=== PATIENT | male | born 1945 | race Caucasian/White ===

== ENCOUNTER 2017-07-28 17:07 | Inpatient (IN) | payer OTHER ==
[2017-07-28 18:29] LABS: ADD MAN DIFF? NO
[2017-07-28 18:33] LABS: WHITE BLOOD COUNT 5.4 10^3/ul (4.8-10.8)
[2017-07-28 18:33] LABS: BASOPHILS % 0.4 % (0.0-2.0); EOSINOPHILS # 0.1 10^3/ul (0.0-0.5); EOSINOPHILS % 2.2 % (0.0-7.0); HEMATOCRIT 40.2 % (42.0-52.0); HEMOGLOBIN 13.5 g/dl (14.0-18.0); LYMPHOCYTES # 1.9 10^3/ul (0.8-2.9); LYMPHOCYTES % 35.8 % (15.0-51.0); MEAN CORPUSCULAR HEMOGLOBIN 30.6 pg (29.0-33.0); MEAN CORPUSCULAR HGB CONC 33.6 g/dl (32.0-37.0); MEAN CORPUSCULAR VOLUME 91.2 fl (82.0-101.0); MEAN PLATELET VOLUME 10.4 fl (7.4-10.4); MONOCYTE # 0.5 10^3/ul (0.3-0.9); MONOCYTES % 9.5 % (0.0-11.0); NEUTROPHIL # 2.8 10^3/ul (1.6-7.5); NEUTROPHILS % 51.9 % (39.0-77.0); PLATELET COUNT 368 10^3/UL (140-415); RED BLOOD COUNT 4.41 10^6/ul (4.70-6.10)
[2017-07-28] MEDS: ASPIRIN 325 MG TAB PO (18:43)
[2017-07-28] MEDS: METOPROLOL 5 MG INJ IV (18:44)
[2017-07-28 19:00] LABS: ANION GAP 12 (8-16); BLOOD UREA NITROGEN 14 mg/dl (7-20); CALCIUM 8.8 mg/dl (8.4-10.2); CARBON DIOXIDE 29 mmol/L (21-31); CHLORIDE 105 mmol/L (97-110); CREATININE 0.78 mg/dl (0.61-1.24); GLUCOSE 297 mg/dl (70-220); POTASSIUM 4.3 mmol/L (3.5-5.1); SODIUM 142 mmol/L (135-144)
[2017-07-28 19:07] LABS: PT RATIO 1.1
[2017-07-28 19:08] LABS: PARTIAL THROMBOPLASTIN TIME 34.4 Sec (25.0-35.0)
[2017-07-28 19:11] LABS: B-TYPE NATRIURETIC PEPTIDE 833 PG/ML (0-125); TROPONIN-I 0.016 ng/ml (0.00-0.12)
[2017-07-28 19:27] LABS: INR 1.04; PROTIME 13.7 Sec (11.9-14.9)
[2017-07-28] MEDS ORDERED: ACETAMINOPHEN 325 MG TAB PO (20:00)
[2017-07-28] MEDS ORDERED: BISACODYL (EC) 5 MG TAB PO (20:00)
[2017-07-28] MEDS ORDERED: morphine 2 MG INJ IV (20:00)
[2017-07-28] MEDS ORDERED: NITROGLYCERIN (SL) 0.4 MG TAB SL (20:00)
[2017-07-28] MEDS ORDERED: NACL 0.9% 3 ML SYG IV (20:00)
[2017-07-28] MEDS ORDERED: ONDANSETRON 4 MG TAB PO (20:00)
[2017-07-28] MEDS ORDERED: GLUCOSE GEL 15 GRAM TUBE BUCCAL (21:00)
[2017-07-28] MEDS ORDERED: DEXTROSE 50% 50 ML SYRINGE IV ×2 (21:00)
[2017-07-28] MEDS ORDERED: GLUCAGON 1 MG INJ IM (21:00)
[2017-07-28] MEDS ORDERED: GLUCOSE GEL 15 GRAM TUBE PO ×2 (21:00)
[2017-07-28] MEDS: SOD CHLORIDE 0.9% 1,000 ML IV (21:38)
[2017-07-28] MEDS: INSULIN ASPART [NOVOLOG] 3 ML PEN SC (21:47)
[2017-07-29] MEDS: DILTIAZEM-D5W 125MG/125ML DRIP 125 ML IV (00:51)
[2017-07-29 01:13] LABS: CREATINE KINASE 65 IU/L (23-200)
[2017-07-29 01:26] LABS: CK INDEX 3.1; TROPONIN-I 0.021 ng/ml (0.00-0.12)
[2017-07-29 01:29] LABS: CK-MB 2.03 ng/ml (0.0-2.4)
[2017-07-29] MEDS: ACCU-CHEK XX (03:05)
[2017-07-29 06:59] LABS: ADD MAN DIFF? NO
[2017-07-29 07:11] LABS: WHITE BLOOD COUNT 5.6 10^3/ul (4.8-10.8)
[2017-07-29 07:11] LABS: BASOPHILS % 0.4 % (0.0-2.0); EOSINOPHILS # 0.1 10^3/ul (0.0-0.5); EOSINOPHILS % 2.5 % (0.0-7.0); HEMATOCRIT 38.7 % (42.0-52.0); HEMOGLOBIN 13.1 g/dl (14.0-18.0); LYMPHOCYTES # 2.1 10^3/ul (0.8-2.9); LYMPHOCYTES % 36.9 % (15.0-51.0); MEAN CORPUSCULAR HEMOGLOBIN 30.8 pg (29.0-33.0); MEAN CORPUSCULAR HGB CONC 33.9 g/dl (32.0-37.0); MEAN CORPUSCULAR VOLUME 90.8 fl (82.0-101.0); MEAN PLATELET VOLUME 10.5 fl (7.4-10.4); MONOCYTE # 0.5 10^3/ul (0.3-0.9); MONOCYTES % 8.5 % (0.0-11.0); NEUTROPHIL # 2.9 10^3/ul (1.6-7.5); NEUTROPHILS % 51.5 % (39.0-77.0); PLATELET COUNT 365 10^3/UL (140-415); RED BLOOD COUNT 4.26 10^6/ul (4.70-6.10); RED CELL DISTRIBUTION WIDTH 12.9 % (11.5-14.5)
[2017-07-29 07:20] LABS: HEMOGLOBIN A1C 8.2 % (0-5.9)
[2017-07-29 07:24] LABS: CREATINE KINASE 59 IU/L (23-200)
[2017-07-29 07:26] LABS: ALANINE AMINOTRANSFERASE 37 IU/L (13-69); ALBUMIN 3.3 g/dl (3.3-4.9); ALBUMIN/GLOBULIN RATIO 1.06; ALKALINE PHOSPHATASE 79 IU/L (42-121); ANION GAP 12 (8-16); ASPARTATE AMINO TRANSFERASE 32 IU/L (15-46); BILIRUBIN,INDIRECT 0.4 mg/dl (0-1.1); BILIRUBIN,TOTAL 0.4 mg/dl (0.2-1.3); BLOOD UREA NITROGEN 12 mg/dl (7-20); CALCIUM 8.6 mg/dl (8.4-10.2); CARBON DIOXIDE 28 mmol/L (21-31); CHLORIDE 108 mmol/L (97-110); CHOL/HDL RATIO 6.7 RATIO; CHOLESTEROL 176 mg/dl (100-200); CREATININE 0.68 mg/dl (0.61-1.24); GLUCOSE 158 mg/dl (70-220); HDL CHOLESTEROL 26 mg/dl (31-75); LDL CHOLESTEROL,CALCULATED 128 mg/dl; MAGNESIUM 1.8 mg/dl (1.7-2.5); POTASSIUM 4.1 mmol/L (3.5-5.1); SODIUM 144 mmol/L (135-144); TOTAL PROTEIN 6.4 g/dl (6.1-8.1); TRIGLYCERIDES 108 mg/dl (0-149)
[2017-07-29 07:33] LABS: CK INDEX 3.3; TROPONIN-I 0.022 ng/ml (0.00-0.12)
[2017-07-29 07:36] LABS: CK-MB 1.97 ng/ml (0.0-2.4)
[2017-07-29] MEDS: INSULIN ASPART [NOVOLOG] 3 ML PEN SC ×4 (08:10→20:49)
[2017-07-29] MEDS: ASPIRIN (EC) 81 MG TAB PO (08:11)
[2017-07-29] MEDS: ENOXAPARIN 100 MG/ML SYG SC (08:12)
[2017-07-29] MEDS: LEVALBUTEROL (NEB) 0.63 MG/3 ML AMP HHN ×4 (09:00→20:20)
[2017-07-29] MEDS: METOPROLOL 25 MG TAB PO (10:16)
[2017-07-29] MEDS ORDERED: morphine LIQ (10 MG/5 ML) CUP PO (16:00)
[2017-07-29] MEDS: DIGOXIN 500 MCG INJ IV ×2 (17:37→20:37)
[2017-07-29] MEDS: METHYLPREDNISOLONE 125 MG INJ IV (17:38)
[2017-07-29] MEDS: RIVAROXABAN 20 MG TABLET PO (18:21)
[2017-07-29] MEDS: ATORVASTATIN 20 MG TAB PO (20:35)
[2017-07-29] MEDS: DILTIAZEM (CD) 120 MG CAP PO (20:36)
[2017-07-29] MEDS: DOCUSATE SODIUM 100 MG CAP PO (20:36)
[2017-07-29] MEDS: INSULIN GLARGINE [LANtus] 3 ML PEN SC (20:49)
[2017-07-30] MEDS: LEVALBUTEROL (NEB) 0.63 MG/3 ML AMP HHN ×6 (00:19→20:05)
[2017-07-30] MEDS: DIGOXIN 500 MCG INJ IV ×2 (01:32→05:31)
[2017-07-30] MEDS: ACCU-CHEK XX (01:50)
[2017-07-30] MEDS: INSULIN ASPART [NOVOLOG] 3 ML PEN SC ×5 (02:05→20:46)
[2017-07-30] MEDS: DOCUSATE SODIUM 100 MG CAP PO (07:59)
[2017-07-30] MEDS: DILTIAZEM (CD) 120 MG CAP PO (08:14)
[2017-07-30 09:32] LABS: CREATINE KINASE 45 IU/L (23-200)
[2017-07-30 09:38] LABS: ALANINE AMINOTRANSFERASE 52 IU/L (13-69); ALBUMIN/GLOBULIN RATIO 1.11; ALKALINE PHOSPHATASE 97 IU/L (42-121); ANION GAP 18 (8-16); ASPARTATE AMINO TRANSFERASE 38 IU/L (15-46); BILIRUBIN,INDIRECT 0.3 mg/dl (0-1.1); BILIRUBIN,TOTAL 0.3 mg/dl (0.2-1.3); BLOOD UREA NITROGEN 21 mg/dl (7-20); CALCIUM 9.1 mg/dl (8.4-10.2); CARBON DIOXIDE 26 mmol/L (21-31); CHLORIDE 101 mmol/L (97-110); CHOL/HDL RATIO 7.4 RATIO; CHOLESTEROL 237 mg/dl (100-200); GLUCOSE 314 mg/dl (70-220); HDL CHOLESTEROL 32 mg/dl (31-75); LDL CHOLESTEROL,CALCULATED 184 mg/dl; MAGNESIUM 1.9 mg/dl (1.7-2.5); POTASSIUM 4.5 mmol/L (3.5-5.1); SODIUM 140 mmol/L (135-144); TOTAL PROTEIN 7.6 g/dl (6.1-8.1); TRIGLYCERIDES 104 mg/dl (0-149)
[2017-07-30 09:44] LABS: B-TYPE NATRIURETIC PEPTIDE 2940 PG/ML (0-125)
[2017-07-30 09:46] LABS: CK INDEX 3.8
[2017-07-30 09:51] LABS: CK-MB 1.69 ng/ml (0.0-2.4); TROPONIN-I < 0.012 ng/ml (0.00-0.12)
[2017-07-30] MEDS: DIGOXIN 0.125 MG TAB PO (13:40)
[2017-07-30] MEDS: RIVAROXABAN 20 MG TABLET PO (17:17)
[2017-07-30] MEDS: ATORVASTATIN 20 MG TAB PO (20:40)
[2017-07-30] MEDS: DILTIAZEM (CD) 180 MG CAP PO (20:42)
[2017-07-30] MEDS: INSULIN GLARGINE [LANtus] 3 ML PEN SC (20:47)
[2017-07-31] MEDS: LEVALBUTEROL (NEB) 0.63 MG/3 ML AMP HHN ×4 (01:28→12:57)
[2017-07-31] MEDS: ACCU-CHEK XX (02:00)
[2017-07-31 07:30] LABS: ADD MAN DIFF? NO
[2017-07-31 07:35] LABS: BASOPHILS % 0.2 % (0.0-2.0); EOSINOPHILS % 0.3 % (0.0-7.0); HEMATOCRIT 42.3 % (42.0-52.0); HEMOGLOBIN 14.5 g/dl (14.0-18.0); LYMPHOCYTES # 2.9 10^3/ul (0.8-2.9); MEAN CORPUSCULAR HEMOGLOBIN 30.7 pg (29.0-33.0); MEAN CORPUSCULAR HGB CONC 34.3 g/dl (32.0-37.0); MEAN CORPUSCULAR VOLUME 89.4 fl (82.0-101.0); MEAN PLATELET VOLUME 10.1 fl (7.4-10.4); MONOCYTE # 0.7 10^3/ul (0.3-0.9); MONOCYTES % 6.2 % (0.0-11.0); NEUTROPHIL # 7.8 10^3/ul (1.6-7.5); PLATELET COUNT 444 10^3/UL (140-415); RED BLOOD COUNT 4.73 10^6/ul (4.70-6.10); RED CELL DISTRIBUTION WIDTH 12.4 % (11.5-14.5)
[2017-07-31 07:35] LABS: WHITE BLOOD COUNT 11.5 10^3/ul (4.8-10.8)
[2017-07-31 08:02] LABS: ALANINE AMINOTRANSFERASE 49 IU/L (13-69); ALBUMIN 3.4 g/dl (3.3-4.9); ALBUMIN/GLOBULIN RATIO 1.09; ALKALINE PHOSPHATASE 87 IU/L (42-121); ANION GAP 12 (8-16); ASPARTATE AMINO TRANSFERASE 31 IU/L (15-46); BILIRUBIN,INDIRECT 0.3 mg/dl (0-1.1); BILIRUBIN,TOTAL 0.3 mg/dl (0.2-1.3); BLOOD UREA NITROGEN 17 mg/dl (7-20); CALCIUM 9.3 mg/dl (8.4-10.2); CARBON DIOXIDE 29 mmol/L (21-31); CHLORIDE 106 mmol/L (97-110); CREATININE 0.67 mg/dl (0.61-1.24); GLUCOSE 189 mg/dl (70-220); MAGNESIUM 1.9 mg/dl (1.7-2.5); SODIUM 143 mmol/L (135-144); TOTAL PROTEIN 6.5 g/dl (6.1-8.1)
[2017-07-31] MEDS: DILTIAZEM (CD) 180 MG CAP PO (08:05)
[2017-07-31 08:07] LABS: B-TYPE NATRIURETIC PEPTIDE 1560 PG/ML (0-125)
[2017-07-31] MEDS: INSULIN ASPART [NOVOLOG] 3 ML PEN SC ×3 (08:07→12:25)
[2017-07-31 08:59] LABS: DIGOXIN 0.7 ng/ml (1.0-2.0)
[2017-07-31] MEDS: FUROSEMIDE 20 MG INJ IV (11:49)
[2017-07-31] MEDS: DIGOXIN 0.125 MG TAB PO (12:30)
[2017-07-31] MEDS ORDERED: ATORVASTATIN 40 MG TAB PO (21:00)
== END 2017-07-31 16:45 | disposition home or self-care (01) | DRG 309 ==
LOC: E/R 17:07 → MS4 19:59
DX: I48.91 Unspecified atrial fibrillation (principal); J45.901 Unspecified asthma with (acute) exacerbation; J44.9 Chronic obstructive pulmonary disease, unspecified; J06.9 Acute upper respiratory infection, unspecified; J40 Bronchitis, not specified as acute or chronic; E11.65 Type 2 diabetes mellitus with hyperglycemia; E78.5 Hyperlipidemia, unspecified; R94.31 Abnormal electrocardiogram [ECG] [EKG]; I50.9 Heart failure, unspecified; Z86.73 Personal history of transient ischemic attack (TIA), and cerebral infarction without residual deficits; Z90.49 Acquired absence of other specified parts of digestive tract; Z79.4 Long term (current) use of insulin
CPT/HCPCS: 36415; 70450; 71045; 80048; 80053; 80061; 80162; 82550; 82553; 82962; 83036; 83735; 83880; 84443; 84484; 85025; 85610; 85730; 93005; 93306; 93970; 94640; 94664; 96372; 96374; 99291-25